=== PATIENT | female | born 1995 | race Caucasian/White ===

== ENCOUNTER 2016-05-13 13:51 | Emergency (ER) | payer MEDICAID, OTHER ==
[~2016-05-13] VITALS: Ht 149.9 cm; Wt 57.3 kg
[2016-05-13 13:52] VITALS: BP 128/79; PULSE 66; RESP 16; TEMP 98.3; O2SAT 100
--- NOTE | 2016-05-13 15:02 | PD ---
HPI Chief Complaint: Headache Time Seen by Provider: 14:59 Travel History International Travel<30 days: No Contact w/Intl Traveler<30days: No Traveled to known affect area: No History of Present Illness HPI 21-year-old female presents to the emergency Department with complaint of pinching, painful headaches for the past 3 weeks. She states that they last seconds and occur 3-5 times daily. They are pinching in nature. Does not have a history of headaches. Denies nausea, vomiting. Denies change in mentation, disorientation, confusion. Denies focal deficits or weakness. Denies change in vision. No known aggravating or relieving factors. Has taken Advil with no relief of symptoms. Last menstrual period approximately one week ago. Denies contraception use. Denies significant past medical history. Denies allergies. No other modifying factors or associated signs and symptoms. PFSH Past Medical History Medical History: Denies Significant Hx ?: Not Social History Tobacco Use: No Allergies-Medications (Allergen,Severity, Reaction): Coded Allergies: No Known Allergies (Unverified , 05/13/16) Reported Meds & Prescriptions Reported Meds & Active Scripts Active Ibuprofen 800 Mg Tab 800 Mg PO Q6HR PRN Review of Systems Except as stated in HPI: all other systems reviewed are Neg Physical Exam Narrative GENERAL: Well-nourished, well-developed female patient, in no acute distress; afebrile, nontoxic-appearing SKIN: Warm and dry. HEAD: Atraumatic. Normocephalic. No facial droop. Tongue midline. EYES: Pupils equal and round at 4 mm with brisk reaction. No scleral icterus. No injection or drainage. PERRLA. EOMI. ENT: Mucosa pink and moist. Airway patent. NECK: Trachea midline. No lymphadenopathy. CARDIOVASCULAR: Regular rate and rhythm. No murmur appreciated. RESPIRATORY: No accessory muscle use. Clear to auscultation. Breath sounds equal bilaterally. GASTROINTESTINAL: Abdomen soft, non-tender, nondistended. Hepatic and splenic margins not palpable. Bowel sounds are active 4 quadrants. MUSCULOSKELETAL: No obvious deformities. No clubbing. No cyanosis. No edema. NEUROLOGICAL: Awake and alert. Oriented 3. No obvious cranial nerve deficits. Motor grossly within normal limits. Normal speech. No ataxia. No mid -line drift. Moves all extremities. 5/5 strength to all extremities. PSYCHIATRIC: Appropriate mood and affect; insight and judgment normal. Data Data Last Documented VS Vital Signs Date Time Temp Pulse Resp B/P Pulse Ox O2 Delivery O2 Flow Rate FiO2 05/13/16 13:52 98.3 66 16 128/[address] Brain W/O Iv Contrast(Rout) (05/13/16 ) Ed Urine Pregnancytest Poc (05/13/16 14:58) MDM Medical Decision Making Medical Screen Exam Complete: Yes Emergency Medical Condition: Yes Medical Record Reviewed: Yes Differential Diagnosis Acute headaches, medical clearance, cluster headache Narrative Course 21-year-old female with intermittent, short spurts of headache lasting seconds, that has been going on for the last 3 weeks. Neuro exam is unremarkable. She currently does not have a headache. Has no other medical complaints at this time. 1609: CT brain with no acute findings. Ibuprofen prescribed for home. Patient is medically cleared and stable for discharge. Discussed reasons to return to the emergency department. Instructed patient to follow up with primary care provider. Patient agrees with treatment plan. The patients vital signs are stable and the patient is stable for outpatient follow-up and treatment. Patient discharged home, stable and in no acute distress. Diagnosis Primary Impression: Headache Qualified Code: R51 - Nonintractable headache, unspecified chronicity pattern , unspecified headache type Referrals: Primary Care Physician Patient Instructions: Acute Headache (ED), General Instructions Departure Forms: Tests/Procedures, Work Release Enter return to work date: May 14, 2016 Additional Instructions: Ibuprofen or Tylenol as directed and as needed to reduce headache Get plenty of rest: do not over sleep rest and relax in a dark, quiet room as needed Place an ice pack on the back of her neck to reduce head pain as needed Keep a headache diary of what triggers her headaches and what treatment is most effective Avoid identifiable triggers Avoid smoking, alcohol and caffeine consumption Reduce stress Follow-up with primary care provider within 1-2 days Follow-up with neurology Return immediately to the emergency department with worsening symptoms Med/Other Pt SpecificInfo: Prescription(s) given Scripts Ibuprofen 800 Mg Eas018 Mg PO Q6HR PRN (PAIN) #30 TAB Ref 0 Prov:Lauren Barba 05/13/16 Disposition: 01 DISCHARGE HOME Condition: Stable Lauren Barba May 13, 2016 15:02
--- NOTE | 2016-05-13 15:54 | RADRPT ---
EXAM DATE/TIME: 05/13/2016 15:26 [facility] COMPARISON: No previous studies available for comparison. INDICATIONS : Cephalgia for three weeks. RADIATION DOSE: 56.35 CTDIvol (mGy) MEDICAL HISTORY : None SURGICAL HISTORY : None. ENCOUNTER: Initial ACUITY: 1 day PAIN SCALE: 5/10 LOCATION: cranial TECHNIQUE: Multiple contiguous axial images were obtained of the head. Using automated exposure control and adj ustment of the mA and/or kV according to patient size, radiation dose was kept as low as reasonably a chievable to obtain optimal diagnostic quality images. FINDINGS: CEREBRUM: The ventricles are normal for age. No evidence of midline shift, mass lesion, hemorrhage or acute in farction. No extra-axial fluid collections are seen. POSTERIOR FOSSA: The cerebellum and brainstem are intact. The 4th ventricle is midline. The cerebellopontine angle i s unremarkable. EXTRACRANIAL: The visualized portion of the orbits is intact. SKULL: The calvaria is intact. No evidence of skull fracture. CONCLUSION: 1. No acute intracranial abnormality identified. Winston Vences MD on May 13, 2016 at 15:51 Board Certified Radiologist. This report was verified electronically.
[2016-05-13] MEDS ORDERED: IBUP800T23 PO (16:10)
== END 2016-05-13 16:20 | disposition home or self-care (01) ==
LOC: NEPB 13:51
DX: R51 Headache (principal)
CPT/HCPCS: 70450; 84703